=== PATIENT | female | born 1950 | race Caucasian/White ===

== ENCOUNTER 2017-02-16 08:20 | Outpatient (CLI) | payer OTHER ==
[2015-10-18 09:16] VITALS: BP 120/75
[2017-02-16 09:15] LABS: eGFR (African) > 60; eGFR (Non-African) > 60
== END 2017-02-16 08:21 ==
LOC: LAB 08:20
PROVIDERS: ATTEND Family Medicine
DX: E03.9 Hypothyroidism, unspecified (principal); Z00.00 Encounter for general adult medical examination without abnormal findings
CPT/HCPCS: 36415; 80053; 80061; 84443

== ENCOUNTER 2018-03-08 08:14 | Outpatient (CLI) | payer MEDICARE ==
[2015-10-18 09:16] VITALS: BP 120/75
[2018-03-08 10:08] LABS: eGFR (African) > 60; eGFR (Non-African) > 60
== END 2018-03-08 14:26 ==
LOC: LAB 08:14
PROVIDERS: ATTEND Family Medicine
DX: Z13.6 Encounter for screening for cardiovascular disorders (principal); E03.9 Hypothyroidism, unspecified
CPT/HCPCS: 36415; 80053; 80061; 84443

== ENCOUNTER 2018-03-13 11:09 | Outpatient (CLI) | payer MEDICARE ==
[2015-10-18 09:16] VITALS: BP 120/75
== END 2018-03-13 11:10 ==
LOC: RAD 11:09
PROVIDERS: ATTEND Family Medicine
DX: Z78.0 Asymptomatic menopausal state (principal)
CPT/HCPCS: 77080

== ENCOUNTER 2018-04-15 07:20 | Day surgery (SDC) | payer MEDICARE ==
[2015-10-18 09:16] VITALS: BP 120/75
[2018-04-15] MEDS ORDERED: SALINE FLUSH 10 ML DISP.SYRIN IVF ONE (08:30)
[2018-04-15] MEDS ORDERED: LIDOCAINE HCL/PF 2% 100 MG/5 ML VIAL IJ ONE (08:30)
[2018-04-15] MEDS ORDERED: LACTATED RINGERS 1,000 ML IV.SOLN IV ONE (08:30)
[2018-04-15] MEDS ORDERED: PROPOFOL 200 MG/20 ML VIAL IV ONE (08:30)
--- NOTE | 2018-04-15 12:25 | GI Report ---
REFERRING PHYSICIAN: Dr. Ariana Larson INSPECTOR [employer]ODUCTION P[employer]IC PARTS: Jean-Paul Lee MD PROCEDURE MEDICATION: Propofol as per anesthesia. INDICATIONS: This 67-year-old woman has had a tubulovillous polyp in the cecum that we piecemeal removed. Her last colonoscopy was back in 2016. She says she takes Benefiber daily and her constipation improved. No pain. No bleeding. PROCEDURE PERFORMED: Colonoscopy and polypectomy. PROCEDURE: An Olympus video colonoscope was advanced to the rectum. She does have mild diverticular disease of the sigmoid colon. Kind of a redundant colon. It took some slow maneuvering to get through the sigmoid colon. The colonoscope was slowly advanced all the way to the cecum. In the base of the cecum, patient has a little residual flat, kind of carpet-like, polyp that takes up maybe 3 mm to 4 mm size. We removed it in 2 pieces with electrocautery and appeared to remove it completely. On slow withdrawal, the remaining part of the ascending colon and transverse colon had redundancy but no obvious intraluminal lesions noted. The descending colon, particularly in the sigmoid, mild diverticular disease and a lot of redundancy. No obvious intraluminal lesions. Retroflexion of the rectum was normal. Patient tolerated the procedure well. FINDINGS: 1. Polyp in that same area in the cecum. It is smaller than it was on previous colonoscopy. There still was some residual removed in 2 pieces. 2. Mild diverticular disease in the sigmoid colon. RECOMMENDATIONS: 1. A high-fiber diet. 2. Pending the pathology of the polyp, consider re-looking at this area again in 3 years since we have had to piecemeal it and so far has been incomplete removal. cc: Dr. Ariana BYRD
== END 2018-04-15 07:22 ==
LOC: OPSURG 07:20
PROVIDERS: ATTEND Internal Medicine Gastroenterology
DX: D12.0 Benign neoplasm of cecum (principal); K57.30 Diverticulosis of large intestine without perforation or abscess without bleeding
CPT/HCPCS: 88305; J2001; J2704; J7120; 45385; S1016

== ENCOUNTER 2018-10-17 09:15 | Outpatient (CLI) | payer MEDICARE ==
[2015-10-18 09:16] VITALS: BP 120/75
--- NOTE | 2018-10-20 16:44 | OP Clinic Progress Note ---
SUBJECTIVE: Mai Meng is a 68-year-old female who presented today for a first visit regarding a bunion of the right foot as well as fallen arch on the left and a desire for new inserts as hers are 30 years old as well as toenail fungus bilaterally and a corn and callus on the right foot. The patient states that she has had inserts for 30 years that have been modified extensively and she still is getting pain now at this point even with the inserts after being on them all day and would like new inserts if possible. Her foot deformity definitely necessitates good inserts. The patient states that she has had the toenail fungus for quite some time as well as the corn that she believes may be due to the wideness of her foot due to the bunion. The patient does not have any pain with the bunion on the right foot at the first metatarsal head but she would like to discuss options for that if needed. The patient states she heard about us via the [employer] radio station. She does not admit to any fevers, chills, nausea, vomiting, shortness of breath or chest pain at this time. OBJECTIVE: Vitals: Temperature 97.4 degrees Fahrenheit, heart rate 70, respiration rate 14, blood pressure 146/81. O2 saturation is 96% on room air. Vascular: 2+ DP and PT pulses, bilateral feet. Capillary refill time is less than 3 seconds to the toes bilaterally. There is very mild edema noted in the posterolateral part of the ankle bilaterally but left more than right. The patient also has varicose veins present and I believe this is mainly the cause of that slight bit of swelling in and around the ankle. Dermatologic: The toenails are long, thick and discolored bilaterally, #1 through #5 toes. The patient also has a small porokeratosis noted at the lateral aspect of the right 5th metatarsal head as well as hyperkeratosis noted on the distal aspect of the right 3rd toe. The patient has no pain with this specific callus but does have some discomfort with the one on the right lateral 5th metatarsal head area. These were trimmed today without incident and there is no open lesion, erythema or concerning lesions elsewhere noted. Musculoskeletal: The patient has a very fallen arch with some pes planovalgus deformity noted. She has no pain on palpation along the posterior tibial tendon of the left foot. The deformity is noted on the left foot, however, only. The right foot has a fairly normal arch overall. The patient has no further pain or discomfort outside of the pain of the corn on the lateral right 5th metatarsal head. She has no pain with efforts on palpation or range of motion of the right first metatarsophalangeal joint. She definitely has a very large osseous bump on the dorsal and slightly dorsomedial aspect of the right first metatarsophalangeal joint area. The patient has no pain there at this time nor irritation noted. Neurologic: Light touch sensation is intact to the toes bilaterally. ASSESSMENT AND PLAN: 1. Hallux valgus with bunion deformity, right foot. 2. [place] and hyperkeratoses noted, right foot. 3. 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 4. Onychomycosis, bilateral toenails #1 through #5. PROCEDURE #1: [place] and callus were trimmed with a #15 blade today without incident totaling 2 lesions removed. The patient tolerated it well and without any pain. There was no open lesion remaining after the debridement. A good discussion was had regarding a lack of need for treatment of the bunion as long as it is not causing any pain for her at this time. She does not wish to have any procedure or treatment for aesthetic reasons at this time. She is happy to just leave it alone. The patient refuses any sort of oral medicine for treatment for her fungal toenails. We discussed conservative options such as Vicks VapoRub daily versus some sort of natural supplement like tea tree oil or melaleuca for the toenails and she prefers the latter option. She requested information from a reliable source that I am familiar with and full disclosure was given and information was given as well as general website information so the patient does not feel any obligation whatsoever to use my referred reliable source. The patient knows that I can only recommend this as a friend and not as her doctor as there is no real FDA evidence of any kind regarding the treatment of fungal toenails with tea tree oil or melaleuca. The patient is grateful for the information and will go forward with it as desired on her part. The patient will have a prescription for functional orthotics sent to [facility] today and she will expect a call from them to try and see if we can get orthotics through them. I believe this is medically necessary for her pes planovalgus deformity that has become painful for her when walking as her inserts are 30 years old. The patient will let me know if there is any financial issues with that, and if so we will look at another option with the physical therapy department underneath the clinic next door or [facility] for heat molded insert. The patient will return to the clinic as needed. She has no further complaints or concerns at this time. She was grateful for her visit and we will see her as needed. Aristeo VeronicaPAgataMAgata (Dictated/Not Signed) Odilon JOB#: [id number] MTDD
--- NOTE | 2018-10-21 08:24 | OP Clinic Progress Note ---
SUBJECTIVE: [place] Meng is a 76-year-old female who presented today to clinic for follow-up of a right ankle fracture open reduction, internal fixation performed on 09/18/18 here at the hospital. The patient denies any concerns over this last week and has been again using her Exogen bone stimulator through the port that was in her cast. She states that she was able to pull the port out by accident yesterday and was able to push it right back in. We will address that today. The patient does not admit to any fevers, chills, nausea, vomiting, shortness of breath or chest pain. She is continuing to take 325 mg of aspirin twice daily for DVT prophylaxis. She has been continuing to ice behind the knee and I told her today that she can do that if she would like to continue but I told her that she does not need to continue using the incentive spirometer at this time. OBJECTIVE: Vitals: Temperature 98.2 degrees Fahrenheit, heart rate 98, respiration rate 18, blood pressure 136/68, oxygen saturation 91% to 94% on room air. Vascular: Palpable pulses, DP and PT, bilateral lower extremities. Capillary refill time is less than 3 seconds to the toes bilaterally. There is mild edema still noted at the left hallux. There is virtually no edema noted in the right lower leg at this time which is improved from last time. There is no erythema, drainage or malodor of any kind from the medial or lateral right ankle incision sites. Dermatologic: The skin on the medial and lateral incisions of the right ankle have healed beautifully. There is no open portions of the incisions at this time. There is no drainage, purulence, erythema or malodor. Steri-Strips were removed today to check and make sure the skin was healed as described above. There is no ecchymosis noted to the left great toe at this time. There is no report of any injury of any kind. Musculoskeletal: There is almost no pain on palpation noted along the incision lines medial and lateral right ankle. There is still mild pain on palpation noted at the distal phalanx as well as the proximal phalanx of the left great toe. The patient has no obvious gross abnormalities noted that are different than normal, especially with respect to the left great toe. It continues to look angulated as it was prior to any injury according to the patient. Neurologic: Light touch sensation is intact to the toes of the left foot and seems overall diminished to the right foot. The patient has a history of [id number] on the right. Psychiatric: Mental status is grossly normal. Affect is normal. ASSESSMENT AND PLAN: 1. Postoperative state, Z98.890. 2. Displaced fracture of lateral malleolus of right fibula, subsequent encounter for closed fracture with routine healing, S82.61XD. 3. Nondisplaced fracture of medial malleolus of right tibia, subsequent encounter for closed fracture with routine healing, S82.54XD. 4. Nondisplaced fracture of left hallux distal phalanx base, subsequent encounter. 5. Perhaps mildly displaced fracture of the left hallux proximal phalanx diaphysis, initial encounter. X-rays were taken of the left foot, 2 views of the toes as well as right ankle, 3 views. The ankle demonstrates continued healing as I am having a hard time seeing any fracture lines at this point. This is noted in both the medial and lateral malleolus. I am able to still see a small fracture line in the posterior malleolus but I believe it is continuing to heal just fine. Especially when combined with the clinical exam, she seems to be doing very well. The evaluation of the left foot toe views demonstrates a proximal phalanx fracture which I was not able to see last time on x-ray. This either shifted or was not visualized appropriately on the last x- ray. It appears to be fairly in appropriate alignment anatomically, however, on the lateral view it appears that it may have displaced somewhat. We are still awaiting an official read from Radiology. We will have to review that on the next visit with the patient. We discussed with the patient the left great toe and the seemingly new fracture. She does not have any known new trauma. We discussed that I would not recommend doing surgery on it at this time. Her toe still seems to be fairly straight and normal according to how it usually is for her. I dont want to add another surgery on top of her right now in the left great toe to try and straighten anything or pursue further imaging at this time. If she has issues down the road we will face them at that time. The patient and her is understanding of this. We will discuss this further on the next visit if they would like to pursue further imaging. PROCEDURE #1: The below-knee cast was removed today, and the patient tolerated it well. PROCDURE #2: A below-knee cast was applied with appropriate extensive cast padding first followed by a stockinette and placing the Exogen bone stimulator on the anterior side of the lateral malleolus area. This cast was applied with fiberglass and was performed around the Exogen stimulator holding it in place well. The patient tolerated the procedure well. On the next visit when we change her cast we will make sure she does a better job holding her ankle in dorsiflexed position as close to 90 degrees as possible. The patient will continue her aspirin at this time, and we will likely have her stop taking aspirin or limit it to 325 mg once daily once we see her at her next visit. She can stop the incentive spirometer. She can continue icing if she desires. Return to the clinic in 2 weeks on 10/30/18 for cast removal and cast application with Exogen port. She can continue the Exogen port bone stimulator daily. I will likely not take x-rays on the next visit and just change the cast and plan for follow-up after I return from my trip. The patient knows that I will be gone and out of town from the through the . She will have to reach out to one of the primary care doctors if she needs anything regarding her leg at that time. The patient had no further questions or concerns. We will plan on seeing the patient on 10/30/18. Aristeo VeronicaPAlex. (Dictated/Not Signed) Odilon JOB#: [id number] MTDD
== END 2018-10-17 09:17 ==
LOC: POD 09:15
PROVIDERS: ATTEND Podiatrist Foot & Ankle Surgery
DX: L84 Corns and callosities (principal); M21.42 Flat foot [pes planus] (acquired), left foot; B35.1 Tinea unguium; M20.11 Hallux valgus (acquired), right foot
CPT/HCPCS: 99203; G0463

== ENCOUNTER 2019-03-13 09:47 | Outpatient (CLI) | payer MEDICARE ==
[2015-10-18 09:16] VITALS: BP 120/75
== END 2019-03-13 09:50 ==
LOC: LAB 09:47
PROVIDERS: ATTEND Family Medicine
DX: E03.9 Hypothyroidism, unspecified (principal)
CPT/HCPCS: 36415; 82306; 84443